=== PATIENT | male | born 1960 | race Caucasian/White ===

== ENCOUNTER 2017-02-26 04:14 | Emergency (ER) | payer OTHER ==
[~2017-02-26] VITALS: Ht 185.4 cm; Wt 124.7 kg
[~2017-02-26 04:14] MED LIST: ALLO100T PO; DIGO250T PO; DILT180C2 PO; FENO135C PO; LISI-338 PO; SOTA80TA48 PO; WARF5TAB7 PO
[2017-02-26] MEDS ORDERED: IV NORMAL SALINE 1000ML BAG 1,000 ML IV SCH (05:00)
[2017-02-26 05:06] LABS: BASO # 0.1 x10^3/uL (0.0-0.2); BASO % 1 % (0-3); EOS % 2 % (0-3); HEMATOCRIT 48.9 % (39.0-53.0); LYMPH # 1.8 x10^3/uL (1.0-4.8); LYMPH % 17 % (24-48); MEAN CORPUSCULAR HEMOGLOBIN 30 pg (25-35); MEAN CORPUSCULAR HGB CONC 35 g/dL (31-37); MEAN CORPUSCULAR VOLUME 87 fL (79-100); MONO % 10 % (0-9); NEUT % 70 % (31-73); PLATELET COUNT 191 x10^3/uL (140-400); RED BLOOD COUNT 5.65 x10^6/uL (4.30-5.70); RED CELL DISTRIBUTION WIDTH 14.6 % (11.5-14.5); WHITE BLOOD COUNT 10.3 x10^3/uL (4.0-11.0)
[2017-02-26 05:08] LABS: BILIRUBIN,URINE NEGATIVE (NEG); GLUCOSE,URINE NEGATIVE (NEG); NITRITE,URINE NEGATIVE (NEG); PH,URINE 5.5; PROTEIN,URINE 100 mg/dL (NEG-TRACE); UROBILINOGEN,URINE 0.2 mg/dL (0.2 mg/dL)
[2017-02-26] MEDS ORDERED: CONTRAST GIVEN MC PRN (05:15)
[2017-02-26] MEDS ORDERED: IOHEXOL 300 MG/ML 75 ML VIAL IV ONE (05:15)
[2017-02-26] MEDS ORDERED: KETOROLAC 30 MG/ML INJ. IV ONE (05:15)
[2017-02-26 05:18] LABS: CALCIUM 9.5 mg/dL (8.5-10.1); CREATININE 1.4 mg/dL (0.7-1.3); GFR 52.2; POTASSIUM 4.2 mmol/L (3.5-5.1)
[2017-02-26 05:24] LABS: ALBUMIN 3.8 g/dL (3.4-5.0); ALBUMIN/GLOBULIN RATIO 1.1 (1.0-1.7); TOTAL BILIRUBIN 0.5 mg/dL (0.2-1.0); TOTAL PROTEIN 7.4 g/dL (6.4-8.2)
[2017-02-26 05:27] LABS: BACTERIA,URINE 0 /HPF (0-FEW); RBC,URINE 0 /HPF (0-2); SQUAMOUS EPITHELIAL CELL,UR MOD /LPF; WBC,URINE 0 /HPF (0-4)
[2017-02-26] MEDS ORDERED: IOHEXOL 300 MG/ML 75 ML VIAL ONE (05:41)
--- NOTE | 2017-02-26 06:11 | RAD ---
CT abdomen and pelvis without with contrast 02/26/2017 CLINICAL INDICATION: Abdominal pain, back pain. Urinary urgency. COMPARISON: None. TECHNIQUE: Multiple CT images of the abdomen and pelvis were obtained without and following the uneventful intravenous administration of 60 mL Omnipaque 300. *One or more of the following individualized dose reduction techniques were utilized for this examination: 1. Automated exposure control. 2. Adjustment of the mA and/or kV according to patient size. 3. Use of iterative reconstruction technique. Abdomen and pelvis findings: There is mild generalized cardiomegaly. Liver, gallbladder, spleen, adrenal glands, pancreas are unremarkable. No intra or extra hepatic biliary ductal dilatation. There is a 4 mm obstructive calculus in the distal right ureter, approximately 1 cm proximal to the UVJ with mild upstream hydroureteronephrosis with periureteral and perinephric stranding. There is a 3 mm hypodensity in the interpolar right kidney which is too small to definitively characterize and The abdominal aorta is normal caliber with mild calcified atheromatous disease. No retroperitoneal mesenteric lymphadenopathy. Small and large bowel loops are normal in caliber without obstruction. Appendix is normal in appearance. Abdominal free fluid. No abdominal lymphadenopathy. Urinary bladder is decompressed. Prostate seminal vesicles are present. No pelvic lymphadenopathy or free fluid. There is 3 mm anterolisthesis of L4 on L5. No destructive osseous lesions. IMPRESSION: 1. 4 mm obstructive calculus in the distal right ureter, just proximal to the UVJ, with mild upstream hydroureteronephrosis. 2. Right periureteral and perinephric stranding may be reactive to the stone, however a ascending infection can't be excluded. Electronically signed by: Phil Sahu MD (02/26/2017 6:07 AM) [facility]
[2017-02-26] MEDS ORDERED: HYDR-971 PO (06:53)
--- NOTE | 2017-02-26 06:53 | PHYS DOC ---
Past Medical History Past Medical History: A-Fib, Hypertension Past Surgical History: No Surgical History Alcohol Use: None Drug Use: None Adult General Chief Complaint Chief Complaint: ABDOMINAL PAIN HPI HPI 57-year-old male with a prior history of diverticulitis no prior history of kidney stones now presents emergency department complaining of right flank pain sudden and severe just prior to arrival. Pain radiates to the abdomen but he does not have any actual abdominal tenderness or pain in no fevers chills sweats or shaking chills. Patient had no prodromal symptoms. He was feeling fine at his baseline last night. Normal bowel and bladder habits. Review of Systems Review of Systems Constitutional: Denies fever or chills [] Eyes: Denies change in visual acuity, redness, or eye pain [] HENT: Denies nasal congestion or sore throat [] Respiratory: Denies cough or shortness of breath [] Cardiovascular: No additional information not addressed in HPI [] GI: Denies abdominal pain, nausea, vomiting, bloody stools or diarrhea [] : Denies dysuria or hematuria [] Musculoskeletal: Denies back pain or joint pain [] Integument: Denies rash or skin lesions [] Neurologic: Denies headache, focal weakness or sensory changes [] Endocrine: Denies polyuria or polydipsia [] Current Medications Current Medications Current Medications Medications (Trade) Dose Ordered Sig/Katia Start Time Stop Time Status Last Admin Dose Admin Info (Do NOT chart on this entry -- for MONITORING) 1 each PRN DAILY PRN 02/26/17 05:15 02/28/17 05:14 Iohexol (Omnipaque 300 Mg/ml) 75 ml STK-MED ONCE 02/26/17 05:41 02/26/17 05:42 DC Ketorolac Tromethamine (Toradol) 30 mg 1X ONCE 02/26/17 05:15 02/26/17 05:22 DC 02/26/17 05:18 30 MG Sodium Chloride 1,000 ml @ 999 mls/hr Q1H1M 02/26/17 05:00 02/26/17 05:11 999 MLS/HR Tamsulosin HCl (Flomax) 0.4 mg 1X ONCE 02/26/17 07:15 02/26/17 07:16 UNV Allergies Allergies Allergies Coded Allergies Type Severity Reaction Last Updated Verified No Known Drug Allergies 07/03/14 No Physical Exam Physical Exam Anxious and restless appearing 57-year-old male in no acute distress mild right CVA tenderness nontender abdomen and pelvis clear lungs regular rate and rhythm no tachycardia benign extremities Constitutional: Well developed, well nourished, no acute distress, non-toxic appearance. [] HENT: Normocephalic, atraumatic, bilateral external ears normal, oropharynx moist, no oral exudates, nose normal. [] Eyes: PERRLA, EOMI, conjunctiva normal, no discharge. [] Neck: Normal range of motion, no tenderness, supple, no stridor. [] Cardiovascular:Heart rate regular rhythm, no murmur [] Lungs & Thorax: Bilateral breath sounds clear to auscultation [] Abdomen: Bowel sounds normal, soft, no tenderness, no masses, no pulsatile masses. [] Skin: Warm, dry, no erythema, no rash. [] Back: No tenderness, no CVA tenderness. [] Extremities: No tenderness, no cyanosis, no clubbing, ROM intact, no edema. [] Neurologic: Alert and oriented X 3, normal motor function, normal sensory function, no focal deficits noted. [] Psychologic: Affect normal, judgement normal, mood normal. [] Current Patient Data Vital Signs Vital Signs Date Time Temp Pulse Resp B/P (MAP) Pulse Ox O2 Delivery O2 Flow Rate FiO2 02/26/17 06:58 80 16 127/67 (87) 97 02/26/17 04:55 Room Air 02/26/17 04:24 97.8 97.8 Lab Values Laboratory Tests Test 02/26/17 04:43 White Blood Count 10.3 x10^3/uL (4.0-11.0) Red Blood Count 5.65 x10^6/uL (4.30-5.70) Hemoglobin 17.0 g/dL (13.0-17.5) Hematocrit 48.9 % (39.0-53.0) Mean Corpuscular Volume 87 fL (79-100) Mean Corpuscular Hemoglobin 30 pg (25-35) Mean Corpuscular Hemoglobin Concent 35 g/dL (31-37) Red Cell Distribution Width 14.6 % (11.5-14.5) H Platelet Count 191 x10^3/uL (140-400) Neutrophils (%) (Auto) 70 % (31-73) Lymphocytes (%) (Auto) 17 % (24-48) L Monocytes (%) (Auto) 10 % (0-9) H Eosinophils (%) (Auto) 2 % (0-3) Basophils (%) (Auto) 1 % (0-3) Neutrophils # (Auto) 7.2 x10^3uL (1.8-7.7) Lymphocytes # (Auto) 1.8 x10^3/uL (1.0-4.8) Monocytes # (Auto) 1.0 x10^3/uL (0.0-1.1) Eosinophils # (Auto) 0.2 x10^3/uL (0.0-0.7) Basophils # (Auto) 0.1 x10^3/uL (0.0-0.2) Urine Collection Type Unknown Urine Color Yellow Urine Clarity Cloudy Urine pH 5.5 Urine Specific [place] 1.025 Urine Protein 100 mg/dL (NEG-TRACE) Urine Glucose (UA) Negative mg/dL (NEG) Urine Ketones (Stick) Negative mg/dL (NEG) Urine Blood Trace (NEG) Urine Nitrite Negative (NEG) Urine Bilirubin Negative (NEG) Urine Urobilinogen Dipstick 0.2 mg/dL (0.2 mg/dL) Urine Leukocyte Esterase Negative (NEG) Urine RBC 0 /HPF (0-2) Urine WBC 0 /HPF (0-4) Urine Squamous Epithelial Cells Mod /LPF Urine Bacteria 0 /HPF (0-FEW) Urine Hyaline Casts Occasional /HPF Urine Mucus Mod /LPF Sodium Level 140 mmol/L (136-145) Potassium Level 4.2 mmol/L (3.5-5.1) Chloride Level 104 mmol/L (98-107) Carbon Dioxide Level 26 mmol/L (21-32) Anion Gap 10 (6-14) Blood Urea Nitrogen 26 mg/dL (8-26) Creatinine 1.4 mg/dL (0.7-1.3) H Estimated GFR (Cockcroft-Gault) 52.2 BUN/Creatinine Ratio 19 (6-20) Glucose Level 113 mg/dL (70-99) H Calcium Level 9.5 mg/dL (8.5-10.1) Total Bilirubin 0.5 mg/dL (0.2-1.0) Aspartate Amino Transferase (AST) 18 U/L (15-37) Alanine Aminotransferase (ALT) 28 U/L (16-63) Alkaline Phosphatase 45 U/L (46-116) L Troponin I Quantitative < 0.017 ng/mL (0.000-0.055) Total Protein 7.4 g/dL (6.4-8.2) Albumin 3.8 g/dL (3.4-5.0) Albumin/Globulin Ratio 1.1 (1.0-1.7) Lipase 307 U/L (73-393) Laboratory Tests 02/26/17 04:43 Laboratory Tests 02/26/17 04:43 EKG EKG [] Radiology/Procedures Radiology/Procedures [] Course & Med Decision Making Course & Med Decision Making Pertinent Labs and Imaging studies reviewed. (See chart for details) Signs and symptoms consistent with renal colic in a 57-year-old male with no prior history thereof. Labs and urinalysis unremarkable except trace blood on UA. CT shows 4 mm stone distal right ureter proximal UVJ. Patient stable and comfortable well-appearing on reevaluation prior to discharge. No infectious prodrome and urinalysis again was completely negative regarding infection. Patient were to take ibuprofen [place] as needed and Flomax as prescribed until passage of stone. He will follow-up with his doctor in 2 days for reevaluation and referral to urology if needed. [] Dragon Disclaimer Dragon Disclaimer This electronic medical record was generated, in whole or in part, using a voice recognition dictation system. Departure Departure Impression: Primary Impression: Ureterolithiasis Additional Impression: Ureteral colic Disposition: 01 HOME, SELF-CARE Condition: IMPROVED Referrals: SUSY WOMACK (PCP) Patient Instructions: Kidney Stones Additional Instructions: You have a 4 mm kidney stone in your right ureter. Typically a 4 mm stone will pass spontaneously. Drink plenty of fluids and take Flomax as prescribed. Flomax is a medicine that helps open the urinary tract and potentially pass a stone. Take ibuprofen 800 mg every 6 hours and use [place] as needed for breakthrough pain. Follow-up with your doctor for reevaluation in 1-2 days and referral to [facility] urology as needed. Reasons to return to the emergency department would include uncontrolled pain or worsening pain in the setting of fevers. Scripts Tamsulosin Hcl (FLOMAX) 0.4 Mg Cap.er.24h 0.4 MG PO DAILY for 10 Days, #10 TAB Prov: ROBERTH BRAMBILA MD 02/26/17 Hydrocodone/Apap 5-325 (NORCO 5-325 TABLET) 1 Each Tablet 1 TAB PO PRN Q6HRS Y for PAIN, #24 TAB 0 Refills Prov: ROBERTH BRAMBILA MD 02/26/17 Problem Qualifiers ROBERTH BRAMBILA MD Feb 26, 2017 06:53
[2017-02-26] MEDS ORDERED: TAMS0.4C97 PO (07:08)
[2017-02-26 07:11] VITALS: BP 134/62
[2017-02-26] MEDS ORDERED: TAMSULOSIN 0.4 MG CAP.ER.24H. PO ONE (07:30)
--- NOTE | 2017-02-26 11:46 | EKG ---
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
== END 2017-02-26 07:23 | disposition home or self-care (01) ==
LOC: ER 04:14
DX: N20.1 Calculus of ureter (principal); I48.91 Unspecified atrial fibrillation; I10 Essential (primary) hypertension
CPT/HCPCS: 36415; 74178; 80053; 81001; 83690; 84484; 85025; 93005; 96361; 96374; 99285; J1885; J7030; Q9967

== ENCOUNTER → 2020-03-21 | Outpatient (CLI) | payer OTHER ==
[~2020-03-21] MED LIST changes: -DIGO250T PO; +DIGO250T3 PO; +HYDR-3164 PO; +TAMS0.4C97 PO; +WARF-31 PO; -WARF5TAB7 PO
[2020-03-21 09:37] LABS: BASO # 0.1 x10^3/uL (0.0-0.2); BASO % 1 % (0-3); EOS # 0.2 x10^3/uL (0.0-0.7); EOS % 3 % (0-3); HEMATOCRIT 49.5 % (39.0-53.0); HEMOGLOBIN 17.1 g/dL (13.0-17.5); LYMPH # 1.6 x10^3/uL (1.0-4.8); LYMPH % 24 % (24-48); MEAN CORPUSCULAR HEMOGLOBIN 31 pg (25-35); MEAN CORPUSCULAR HGB CONC 35 g/dL (31-37); MEAN CORPUSCULAR VOLUME 89 fL (79-100); MONO # 0.8 x10^3/uL (0.0-1.1); MONO % 13 % (0-9); NEUT % 60 % (31-73); PLATELET COUNT 194 x10^3/uL (140-400); RED BLOOD COUNT 5.56 x10^6/uL (4.30-5.70); RED CELL DISTRIBUTION WIDTH 13.8 % (11.5-14.5); WHITE BLOOD COUNT 6.6 x10^3/uL (4.0-11.0)
[2020-03-21 10:00] LABS: CALCIUM 9.3 mg/dL (8.5-10.1); CREATININE 1.1 mg/dL (0.7-1.3); GFR 68.3; POTASSIUM 4.6 mmol/L (3.5-5.1)
[2020-03-21 10:03] LABS: URIC ACID 8.1 mg/dL (3.5-7.2)
== END ==
LOC: ONCLAB 09:03
PROVIDERS: ATTEND Internal Medicine Hematology & Oncology
DX: D45 Polycythemia vera (principal)
CPT/HCPCS: 36415; 80048; 81270; 82607; 82668; 82746; 84550; 85025

== ENCOUNTER → 2020-04-21 | Outpatient (CLI) | payer OTHER | LOC: ONCLAB 08:20 | PROVIDERS: ATTEND Internal Medicine Hematology & Oncology | DX: D45 Polycythemia vera (principal) | CPT/HCPCS: 36415; 82728; 83540; 83550 ==

== ENCOUNTER 2021-08-31 18:11 | Inpatient (IN) | payer OTHER ==
[~2021-08-31] VITALS: Ht 185.4 cm; Wt 125.3 kg
[~2021-08-31 18:11] MED LIST changes: -LISI-338 PO; +LISI5TAB15 PO
[2021-08-31] MEDS ORDERED: APIX5TAB PO (18:36)
[2021-08-31 19:00] VITALS: BP 86/54
[2021-08-31] MEDS: IV NORMAL SALINE 1000ML BAG 1,000 ML IV SCH (19:47)
[2021-08-31 20:33] LABS: BASO % 0 % (0-3); EOS # 0.1 x10^3/uL (0.0-0.7); EOS % 1 % (0-3); HEMATOCRIT 41.4 % (39.0-53.0); LYMPH # 0.3 x10^3/uL (1.0-4.8); LYMPH % 3 % (24-48); MEAN CORPUSCULAR HEMOGLOBIN 30 pg (25-35); MEAN CORPUSCULAR HGB CONC 34 g/dL (31-37); MEAN CORPUSCULAR VOLUME 89 fL (79-100); MONO # 0.4 x10^3/uL (0.0-1.1); MONO % 5 % (0-9); NEUT # 8.1 x10^3/uL (1.8-7.7); NEUT % 91 % (31-73); PLATELET COUNT 109 x10^3/uL (140-400); RED BLOOD COUNT 4.65 x10^6/uL (4.30-5.70); RED CELL DISTRIBUTION WIDTH 15.3 % (11.5-14.5); WHITE BLOOD COUNT 8.8 x10^3/uL (4.0-11.0)
[2021-08-31 20:41] LABS: CALCIUM 8.7 mg/dL (8.5-10.1); CREATININE 2.5 mg/dL (0.7-1.3); GFR 26.4; POTASSIUM 4.2 mmol/L (3.5-5.1)
[2021-08-31 20:48] LABS: ALBUMIN 2.4 g/dL (3.4-5.0); ALBUMIN/GLOBULIN RATIO 0.6 (1.0-1.7); TOTAL BILIRUBIN 2.5 mg/dL (0.2-1.0); TOTAL PROTEIN 6.6 g/dL (6.4-8.2)
[2021-08-31] MEDS ORDERED: CONTRAST GIVEN. MC PRN (21:00)
[2021-08-31] MEDS ORDERED: IOHEXOL 240 MG/ML 50ML VIAL. PO ONE (21:00)
[2021-08-31 21:19] LABS: RBC,URINE TNTC /HPF (0-2)
[2021-08-31 21:21] LABS: AMORPHOUS SEDIMENT,UR PRESENT /HPF; BACTERIA,URINE FEW /HPF (0-FEW); WBC,URINE 20-40 /HPF (0-4)
[2021-08-31 21:23] LABS: % EOS 2 % (0-5)
[2021-08-31 21:24] LABS: % BANDS 34 % (0-9); % LYMPHS 3 % (24-48); % MONOS 3 % (0-10); % SEGS 58 % (35-66); PLT ESTIMATE DECREASED (ADEQUATE); TOXIC GRANULATION PRESENT; TOXIC VACUOLATION PRESENT
[2021-08-31] MEDS: cefTRIAXone IV Push 1 GM VIAL. IVP SCH (22:01)
--- NOTE | 2021-08-31 22:36 | RAD ---
PQRS Compliance Statement: One or more of the following individualized dose reduction techniques were utilized for this examinat ion: 1. Automated exposure control 2. Adjustment of the mA and/or kV according to patient size 3. Use of iterative reconstruction technique CT abdomen/pelvis without contrast 08/31/2021 9:03 PM INDICATION: Abdominal pain, kidney stone. Pyelonephritis. COMPARISON: CT abdomen/pelvis 02/26/2017 TECHNIQUE: Multiple axial CT images of the abdomen and pelvis were obtained without intravenous contr ast. Coronal and sagittal reformats are provided. FINDINGS: Bibasilar subsegmental atelectasis versus scarring. Heart size is within normal limits. Evaluation of the solid abdominal viscera is limited by lack of intravenous contrast. No suspicious hepatic masses are identified. Spleen, bilateral adrenal glands, and pancreas are lisbet l in appearance. Gallbladder is present without adjacent inflammatory changes. The abdominal aorta is normal in course and caliber. There are no pathologically enlarged lymph nodes in the abdomen and pelvis. There is no abdominal free fluid. There is no free intraperitoneal air. Moderate diverticulosis. Oral contrast was administered. Opacified bowel loops demonstrate normal muc osal fold pattern. Small and large bowel are normal in caliber. There is no evidence for bowel obstru ction. There are no pericolonic inflammatory changes. A normal, nondilated appendix is visualized wit hout adjacent inflammatory changes. There is mild left hydroureteronephrosis with periureteral and perinephric fat stranding. No calculus is identified within the kidneys, ureters or urinary bladder. Minimal right perinephric edema. Urina ry bladder is within normal limits given degree of distention. Prostate seminal vesicles are normal. No suspicious osseous abnormality is identified. IMPRESSION: Mild left hydroureteronephrosis with periureteral and perinephric fat stranding. Correlate with urina lysis to assess for pyelitis or pyelonephritis. Obstructive etiology is not visualized and could refl ect recently passed calculus. Electronically signed by: Mercedes Yoon MD (08/31/2021 10:34 PM) [facility]
[2021-08-31 23:00] VITALS: BP 102/53
[2021-08-31] MEDS: SOTALOL 80 MG TABLET. PO SCH (23:35)
[2021-08-31] MEDS ORDERED: IV NORMAL SALINE 500ML BAG 500 ML IV ONE (23:45)
[2021-08-31] MEDS: HYDROcodone/APAP 10/325 1 TAB TABLET PO PRN (23:51)
--- NOTE | 2021-09-01 00:21 | RAD ---
EXAMINATION: XR CHEST 2V CLINICAL HISTORY: Chest pain. EXAM DATE/TIME: 08/31/2021 10:24 PM COMPARISON: None FINDINGS: Lines, Tubes, and Devices: None. Cardiomediastinal Silhouette: Within normal limits. Lungs and Pleura: No evidence of focal airspace consolidation or pleural effusion. Mild curvilinear s ubsegmental atelectasis and/or scarring in the left lower lung zone. Pulmonary vasculature unremarkab le. Bones and Soft Tissues: Degenerative changes in the thoracic spine. IMPRESSION: No evidence of acute cardiopulmonary abnormality. Electronically signed by: Carl Burch DO (09/01/2021 12:19 AM) [facility]
[2021-09-01 03:02] VITALS: BP 92/55
[2021-09-01] MEDS: HYDROcodone/APAP 10/325 1 TAB TABLET PO PRN (06:09)
[2021-09-01] MEDS: IV NORMAL SALINE 1000ML BAG 1,000 ML IV SCH ×2 (06:09→17:55)
[2021-09-01 07:00] VITALS: BP 86/55
[2021-09-01 08:40] LABS: CALCIUM 8.8 mg/dL (8.5-10.1); CREATININE 2.2 mg/dL (0.7-1.3); GFR 30.6
[2021-09-01] MEDS: SOTALOL 80 MG TABLET. PO SCH ×2 (09:00→20:55)
[2021-09-01] MEDS ORDERED: LISINOPRIL 5 MG TABLET. PO SCH (09:00)
[2021-09-01] MEDS: DIGOXIN 125 MCG TABLET. PO SCH (09:15)
--- NOTE | 2021-09-01 09:38 | PDOC ---
Provider Note Date of Service: DATE: 09/01/21 TIME: 09:37 Provider Note Pt seen .H&P dictated.#[id number]. Justifications for Admission Other Justification ADRIAN CARROLL MD Sep 01, 2021 09:38
--- NOTE | 2021-09-01 10:10 | HP ---
DATE OF SERVICE: 09/01/2021 ADMIT DATE: 08/31/2021 REASON FOR ADMISSION TO THE HOSPITAL: Left kidney pain, flank pain, has a history of kidney stones in the past and not any better, possible pyelonephritis over kidney stone. HISTORY OF PRESENT ILLNESS: The patient is a 61-year-old male, has a history of kidney stone 2 years ago. They had to do a cystoscopy, removal of the kidney stone 2-3 years ago. He was having pain in the left flank, dull, constant, did not get any better for last 2-3 days. He also has some fevers and chills. He was feeling miserable, seen in the office. He was tender in left upper quadrant and was admitted to the hospital. Urine shows lot of blood, leukocytes. The patient was admitted to the hospital, was started on IV antibiotics and CT scan was done, shows perinephric inflammation, possible pyelonephritis. Also, his kidneys went up to his normal kidneys well at 20 and 1.2. BUN, creatinine went up to 60 and 2.3. PAST MEDICAL HISTORY: Has a history of hypertension. He has atrial fibrillation, on Eliquis. PAST SURGICAL HISTORY: As mentioned, had a kidney stone removed 2-3 years ago. ALLERGIES: No known drug allergies. MEDICATIONS AT HOME: The patient is on Eliquis 5 mg twice a day for atrial fibrillation, digoxin 250 mg daily, lisinopril 5 mg daily, sotalol 160 mg twice a day. PERSONAL HISTORY: Denies smoking, alcohol, or drug abuse. FAMILY HISTORY: Unremarkable. REVIEW OF SYSTEMS: Complains of pain in the left upper quadrant going down to the groin, had felt weak and chills couple of days ago and also blood in the urine. PHYSICAL EXAMINATION: VITAL SIGNS: Afebrile, temperature 98, pulse 92, respirations 20, blood pressure 102/53, 93 on room air. HEENT: Head is atraumatic. Pupils equal. Oral cavity, no congestion. NECK: Supple. Thyroid not enlarged. JVD not elevated. CHEST: Symmetrical. CARDIOVASCULAR: S1, S2. LUNGS: Clear. ABDOMEN: Left upper quadrant tenderness to deep palpation. No rebound. Bowel sounds present. EXTERNAL GENITALIA: No Mckeon. RECTUM: Deferred. EXTREMITIES: No calf tenderness, no edema. NEUROLOGIC: No focal deficits noted. LABORATORY AND IMAGING DATA: White count 9, hemoglobin 14, platelets 109. Electrolytes shows sodium 133, potassium 4.2, chloride 96, bicarbonate 26, BUN 63, creatinine 2.5 and urine shows too many rbc's, 20-40 wbc's, large amount of blood, small leukocyte esterase, and chest x-ray negative. CT scan of the abdomen and pelvis shows mild left hydroureteronephrosis with perinephric fat stranding, possible pyelonephritis. FINAL IMPRESSION: 1. Pyelonephritis, kidney stone. 2. Acute kidney failure. 3. Atrial fibrillation. PLAN: At this time, the patient was admitted to the hospital, hydrated with IV fluids, so a CT scan shows pyelonephritis, no kidney stone, maybe kidney stone passed by, urine cultures, started on broad-spectrum antibiotics, monitor kidney function, Urology consult and see how he does. GARRET REESE: Hammad TID: [id number]
--- NOTE | 2021-09-01 10:23 | PDOC2 ---
UROLOGY CONSULT Date of Service DATE: 09/01/21 TIME: 10:02 Reason for Consult Reason for Consult: hydronephrosis Identification/Chief Complaint Chief Complaint left flank pain History of Present Illness Reason for Visit: 61yo male hospitalized for left flank pain and hematuria. About 3-4 days ago noticed feeling like UTI--dysuria, hematuria, hesitancy, weak stream. Later pt n oticed left flank and upper abdominal pain. He saw Dr. Diaz yesterday who admitted him for further workup. CT a/p showed mild left hydroureteronephrosis and fat stranding. UA showed trace bacteria, TNTC RBC, and 20-40 WBC. Normal serum WBC. Cr elevated above baseline. He was started on antibiotics and IV fluids. This morning pt notes that his pain is much improved, very mild now. His urinary symptoms have resolved as well--no dysuria or hesitancy anymore. Urine still looks "dark". Pt states he was dehydrated, didn't feel like drinking water prior to admission. Denies fevers throughout this. Pt notes history of kidney stone once a few years ago that required ureteroscopy for removal. He states the pain felt similar. He does have cardiac history and takes Eliquis which was held. At baseline, pt denies any urinary bother--no hesitancy, weak/intermittent stream, urgency, frequency, nocturia, incontinence. Past Medical History Cardiovascular: AFIB, HTN Renal/: Other (kidney stones) Past Surgical History Past Surgical History: Other (ureteroscopy, stone extraction) Family History Family History: Other (unremarkable) Current Medications Current Medications Current Medications Acetaminophen/ Hydrocodone Bitart (Lortab 10/325) 1 tab PRN Q6HRS PRN PO SEVERE PAIN 7-10 Last administered on 09/01/21at 06:09; Start 08/31/21 at 23:30; Stop 09/01/21 at 09:33; Status DC Ceftriaxone Sodium (Rocephin) 1 gm Q24H IVP Last administered on 08/31/21at 22:01; Start 08/31/21 at 20:00 Digoxin (Lanoxin) 250 mcg DAILY PO Last administered on 09/01/21at 09:15; Start 09/01/21 at 09:00 Info (CONTRAST GIVEN -- Rx MONITORING) 1 each PRN DAILY PRN MC SEE COMMENTS; Start 08/31/21 at 21:00; Stop 09/02/21 at 20:59 Iohexol (Omnipaque 240 Mg/ml) 50 ml 1X ONCE PO Last administered on 08/31/21at 21:04; Start 08/31/21 at 21:00; Stop 08/31/21 at 21:01; Status DC Lisinopril (Prinivil) 5 mg DAILY PO ; Start 09/01/21 at 09:00; Stop 09/01/21 at 09:33; Status DC Oxycodone/ Acetaminophen (Percocet 10/325) 1 tab PRN Q4HRS PRN PO PAIN; Start 09/01/21 at 09:45 Sodium Chloride 500 ml @ 500 mls/hr 1X ONCE IV Last administered on 08/31/21at 23:51; Start 08/31/21 at 23:45; Stop 09/01/21 at 00:44; Status DC Sodium Chloride 1,000 ml @ 100 mls/hr Q10H IV Last administered on 09/01/21at 06:09; Start 08/31/21 at 20:00 Sotalol HCl (Betapace) 160 mg BID PO ; Start 08/31/21 at 21:00 Allergies Allergies: Coded Allergies: No Known Drug Allergies (Unverified , 07/03/14) ROS Review Of Systems: CONSTITUTIONAL: No fever or chills EYES: No recent changes SKIN: No rash or itching CARDIOVASCULAR: No chest pain, syncope, palpitations, or edema RESPIRATORY: No SOB or cough GASTROINTESTINAL: No nausea, vomiting or abdominal pain NEUROLOGICAL: No headaches or weakness ENDOCRINE: No cold or heat intolerance GENITOURINARY: as in hpi MUSCULOSKELETAL: No back pain or joint pain LYMPHATICS: No enlarged lymph nodes PSYCHIATRIC: No anxiety or depression Physical Exam Physical Exam: General: Pleasant, no acute distress, well groomed Eyes: conjunctiva anicteric, eyes full range of motion ENT: moist oral mucosa, normal dentition Neck: Trachea midline, no masses Respiratory: unlabored breathing, not using accessory muscles, no crackles or wheezes Cardiovascular: Regular rate and rhythm, no peripheral edema Abdomen: nontender, nondistended, no hepatosplenomegaly, no masses Skin: no rashes or skin lesions on visualized skin Psych: normal mood, affect. Alert and oriented x 3. Vitals VITALS Vital Signs Date Time Temp Pulse Resp B/P (MAP) Pulse Ox O2 Delivery O2 Flow Rate FiO2 09/01/21 09:15 89 86/55 09/01/21 08:00 Room Air 09/01/21 07:15 20 94 09/01/21 07:00 98.8 98.8 Labs Labs Laboratory Tests Test 08/31/21 20:10 08/31/21 20:50 09/01/21 05:50 White Blood Count 8.8 x10^3/uL (4.0-11.0) Red Blood Count 4.65 x10^6/uL (4.30-5.70) Hemoglobin 14.0 g/dL (13.0-17.5) Hematocrit 41.4 % (39.0-53.0) Mean Corpuscular Volume 89 fL (79-100) Mean Corpuscular Hemoglobin 30 pg (25-35) Mean Corpuscular Hemoglobin Concent 34 g/dL (31-37) Red Cell Distribution Width 15.3 % (11.5-14.5) Platelet Count 109 x10^3/uL (140-400) Neutrophils (%) (Auto) 91 % (31-73) Lymphocytes (%) (Auto) 3 % (24-48) Monocytes (%) (Auto) 5 % (0-9) Eosinophils (%) (Auto) 1 % (0-3) Basophils (%) (Auto) 0 % (0-3) Neutrophils # (Auto) 8.1 x10^3/uL (1.8-7.7) Lymphocytes # (Auto) 0.3 x10^3/uL (1.0-4.8) Monocytes # (Auto) 0.4 x10^3/uL (0.0-1.1) Eosinophils # (Auto) 0.1 x10^3/uL (0.0-0.7) Basophils # (Auto) 0.0 x10^3/uL (0.0-0.2) Segmented Neutrophils % 58 % (35-66) Band Neutrophils % 34 % (0-9) Lymphocytes % 3 % (24-48) Monocytes % 3 % (0-10) Eosinophils % 2 % (0-5) Toxic Granulation Present Toxic Vacuolation Present Platelet Estimate Decreased (ADEQUATE) Sodium Level 133 mmol/L (136-145) 131 mmol/L (136-145) Potassium Level 4.2 mmol/L (3.5-5.1) 4.0 mmol/L (3.5-5.1) Chloride Level 96 mmol/L (98-107) 96 mmol/L (98-107) Carbon Dioxide Level 26 mmol/L (21-32) 25 mmol/L (21-32) Anion Gap 11 (6-14) 10 (6-14) Blood Urea Nitrogen 63 mg/dL (8-26) 60 mg/dL (8-26) Creatinine 2.5 mg/dL (0.7-1.3) 2.2 mg/dL (0.7-1.3) Estimated GFR (Cockcroft-Gault) 26.4 30.6 BUN/Creatinine Ratio 25 (6-20) Glucose Level 84 mg/dL (70-99) 72 mg/dL (70-99) Calcium Level 8.7 mg/dL (8.5-10.1) 8.8 mg/dL (8.5-10.1) Total Bilirubin 2.5 mg/dL (0.2-1.0) Aspartate Amino Transf (AST/SGOT) 22 U/L (15-37) Alanine Aminotransferase (ALT/SGPT) 27 U/L (16-63) Alkaline Phosphatase 54 U/L (46-116) Total Protein 6.6 g/dL (6.4-8.2) Albumin 2.4 g/dL (3.4-5.0) Albumin/Globulin Ratio 0.6 (1.0-1.7) Urine Collection Type Unknown Urine Color (Auto) Hall Urine Turbidity Turbid Urine pH (Auto) 5.5 (<5.0-8.0) Urine Specific [place] 1.024 (1.000-1.030) Urine Protein (Auto) 200 mg/dL (Negative) Urine Glucose (Auto)(UA) Negative mg/dL (Negative) Urine Ketones (Auto) Negative mg/dL (Negative) Urine Blood (Auto) Large (Negative) Urine Nitrite Negative (Negative) Urine Bilirubin (Auto) Small (Negative) Urine Urobilinogen (Auto) 6 mg/dL (Normal) Urine Leukocyte Esterase (Auto) Moderate (Negative) Urine RBC Tntc /HPF (0-2) Urine WBC 20-40 /HPF (0-4) Urine Squamous Epithelial Cells Occ /LPF Urine Renal Epithelial Cells Occ /LPF Urine Amorphous Sediment Present /HPF Urine Bacteria Few /HPF (0-FEW) Urine Mucus Mod /LPF Laboratory Tests Test 08/31/21 20:10 08/31/21 20:50 09/01/21 05:50 White Blood Count 8.8 x10^3/uL (4.0-11.0) Red Blood Count 4.65 x10^6/uL (4.30-5.70) Hemoglobin 14.0 g/dL (13.0-17.5) Hematocrit 41.4 % (39.0-53.0) Mean Corpuscular Volume 89 fL (79-100) Mean Corpuscular Hemoglobin 30 pg (25-35) Mean Corpuscular Hemoglobin Concent 34 g/dL (31-37) Red Cell Distribution Width 15.3 % (11.5-14.5) Platelet Count 109 x10^3/uL (140-400) Neutrophils (%) (Auto) 91 % (31-73) Lymphocytes (%) (Auto) 3 % (24-48) Monocytes (%) (Auto) 5 % (0-9) Eosinophils (%) (Auto) 1 % (0-3) Basophils (%) (Auto) 0 % (0-3) Neutrophils # (Auto) 8.1 x10^3/uL (1.8-7.7) Lymphocytes # (Auto) 0.3 x10^3/uL (1.0-4.8) Monocytes # (Auto) 0.4 x10^3/uL (0.0-1.1) Eosinophils # (Auto) 0.1 x10^3/uL (0.0-0.7) Basophils # (Auto) 0.0 x10^3/uL (0.0-0.2) Segmented Neutrophils % 58 % (35-66) Band Neutrophils % 34 % (0-9) Lymphocytes % 3 % (24-48) Monocytes % 3 % (0-10) Eosinophils % 2 % (0-5) Toxic Granulation Present Toxic Vacuolation Present Platelet Estimate Decreased (ADEQUATE) Sodium Level 133 mmol/L (136-145) 131 mmol/L (136-145) Potassium Level 4.2 mmol/L (3.5-5.1) 4.0 mmol/L (3.5-5.1) Chloride Level 96 mmol/L (98-107) 96 mmol/L (98-107) Carbon Dioxide Level 26 mmol/L (21-32) 25 mmol/L (21-32) Anion Gap 11 (6-14) 10 (6-14) Blood Urea Nitrogen 63 mg/dL (8-26) 60 mg/dL (8-26) Creatinine 2.5 mg/dL (0.7-1.3) 2.2 mg/dL (0.7-1.3) Estimated GFR (Cockcroft-Gault) 26.4 30.6 BUN/Creatinine Ratio 25 (6-20) Glucose Level 84 mg/dL (70-99) 72 mg/dL (70-99) Calcium Level 8.7 mg/dL (8.5-10.1) 8.8 mg/dL (8.5-10.1) Total Bilirubin 2.5 mg/dL (0.2-1.0) Aspartate Amino Transf (AST/SGOT) 22 U/L (15-37) Alanine Aminotransferase (ALT/SGPT) 27 U/L (16-63) Alkaline Phosphatase 54 U/L (46-116) Total Protein 6.6 g/dL (6.4-8.2) Albumin 2.4 g/dL (3.4-5.0) Albumin/Globulin Ratio 0.6 (1.0-1.7) Urine Collection Type Unknown Urine Color (Auto) Hall Urine Turbidity Turbid Urine pH (Auto) 5.5 (<5.0-8.0) Urine Specific [place]da 1.024 (1.000-1.030) Urine Protein (Auto) 200 mg/dL (Negative) Urine Glucose (Auto)(UA) Negative mg/dL (Negative) Urine Ketones (Auto) Negative mg/dL (Negative) Urine Blood (Auto) Large (Negative) Urine Nitrite Negative (Negative) Urine Bilirubin (Auto) Small (Negative) Urine Urobilinogen (Auto) 6 mg/dL (Normal) Urine Leukocyte Esterase (Auto) Moderate (Negative) Urine RBC Tntc /HPF (0-2) Urine WBC 20-40 /HPF (0-4) Urine Squamous Epithelial Cells Occ /LPF Urine Renal Epithelial Cells Occ /LPF Urine Amorphous Sediment Present /HPF Urine Bacteria Few /HPF (0-FEW) Urine Mucus Mod /LPF Images Images CT abdomen/pelvis without contrast 08/31/2021 9:03 PM INDICATION: Abdominal pain, kidney stone. Pyelonephritis. COMPARISON: CT abdomen/pelvis 02/26/2017 TECHNIQUE: Multiple axial CT images of the abdomen and pelvis were obtained without intravenous contrast. Coronal and sagittal reformats are provided. FINDINGS: Bibasilar subsegmental atelectasis versus scarring. Heart size is within normal limits. Evaluation of the solid abdominal viscera is limited by lack of intravenous contrast. No suspicious hepatic masses are identified. Spleen, bilateral adrenal glands, and pancreas are normal in appearance. Gallbladder is present without adjacent inflammatory changes. The abdominal aorta is normal in course and caliber. There are no pathologically enlarged lymph nodes in the abdomen and pelvis. There is no abdominal free fluid. There is no free intraperitoneal air. Moderate diverticulosis. Oral contrast was administered. Opacified bowel loops demonstrate normal mucosal fold pattern. Small and large bowel are normal in caliber. There is no evidence for bowel obstruction. There are no pericolonic inflammatory changes. A normal, nondilated appendix is visualized without adjacent inflammatory changes. There is mild left hydroureteronephrosis with periureteral and perinephric fat stranding. No calculus is identified within the kidneys, ureters or urinary bladder. Minimal right perinephric edema. Urinary bladder is within normal limits given degree of distention. Prostate seminal vesicles are normal. No suspicious osseous abnormality is identified. IMPRESSION: Mild left hydroureteronephrosis with periureteral and perinephric fat stranding. Correlate with urinalysis to assess for pyelitis or pyelonephritis. Obstructive etiology is not visualized and could reflect recently passed calculus. Electronically signed by: Mercedes Yoon MD (08/31/2021 10:34 PM) [facility] Assessment/Plan Assessment/Plan Mild left hydroureteronephrosis, gross hematuria Imaging reviewed--dilation of left ureter down to bladder. No stone or obvious obstruction noted. Left perinephric fat stranding. UA with few bacteria. No leukocytosis or fevers. Has been hypotensive. KATE--improving. Likely due to left pyelitis. Continue abx, IVF, f/u urine cultures. Blood cultures show +GNR. Check pvr to assess incomplete emptying as cause of possible UTI. Pt does have hx of stones, may have recently passed a stone which could cause same symptoms. Continue to strain urine. Malignancy could also cause hematuria & obstruction though this seems less likely at this point, especially due to positive blood cultures. Check urine cytology. Pt should f/u in clinic 2 weeks after d/c. If symptoms persist then would recommend cystoscopy and possibly further imaging at that time. Will follow. D/w RN and Dr. Tejeda. ADENIKE PLAZA Sep 01, 2021 10:23
[2021-09-01 11:00] VITALS: BP 109/63
[2021-09-01] MEDS: oxyCODONE/APAP 10/325 1 TAB TABLET PO PRN ×2 (13:22→21:02)
[2021-09-01 15:00] VITALS: BP 91/60
[2021-09-01 19:00] VITALS: BP 109/64
[2021-09-01] MEDS: cefTRIAXone IV Push 1 GM VIAL. IVP SCH (21:02)
[2021-09-01] MEDS: LACTOBACILLUS RHAMNOSUS GG 1 CAPSULE. PO SCH (21:02)
[2021-09-01 23:16] VITALS: BP 103/50
[2021-09-02] MEDS: IV NORMAL SALINE 1000ML BAG 1,000 ML IV SCH ×2 (02:57→11:43)
[2021-09-02 03:21] VITALS: BP 109/67
[2021-09-02] MEDS: oxyCODONE/APAP 10/325 1 TAB TABLET PO PRN ×3 (03:41→20:38)
[2021-09-02 06:18] LABS: BASO % 1 % (0-3); EOS # 0.1 x10^3/uL (0.0-0.7); EOS % 1 % (0-3); HEMATOCRIT 39.8 % (39.0-53.0); HEMOGLOBIN 13.2 g/dL (13.0-17.5); LYMPH # 0.5 x10^3/uL (1.0-4.8); LYMPH % 7 % (24-48); MEAN CORPUSCULAR HEMOGLOBIN 30 pg (25-35); MEAN CORPUSCULAR HGB CONC 33 g/dL (31-37); MEAN CORPUSCULAR VOLUME 90 fL (79-100); MONO # 0.9 x10^3/uL (0.0-1.1); MONO % 12 % (0-9); NEUT # 6.3 x10^3/uL (1.8-7.7); NEUT % 80 % (31-73); PLATELET COUNT 117 x10^3/uL (140-400); RED BLOOD COUNT 4.45 x10^6/uL (4.30-5.70); RED CELL DISTRIBUTION WIDTH 15.9 % (11.5-14.5); WHITE BLOOD COUNT 7.9 x10^3/uL (4.0-11.0)
[2021-09-02 06:41] LABS: CALCIUM 8.5 mg/dL (8.5-10.1); CREATININE 1.9 mg/dL (0.7-1.3); GFR 36.2; POTASSIUM 4.2 mmol/L (3.5-5.1)
[2021-09-02 07:00] VITALS: BP 116/66
[2021-09-02] MEDS: SOTALOL 80 MG TABLET. PO SCH ×3 (08:50→20:39)
[2021-09-02] MEDS: DIGOXIN 125 MCG TABLET. PO SCH (08:54)
[2021-09-02] MEDS: LACTOBACILLUS RHAMNOSUS GG 1 CAPSULE. PO SCH ×2 (08:55→20:38)
--- NOTE | 2021-09-02 09:38 | PDOC ---
PROGRESS NOTES Date of Service: DATE: 09/02/21 TIME: 09:36 Subjective Subjective still has pain in the back Objective Objective Vital Signs Date Time Temp Pulse Resp B/P (MAP) Pulse Ox O2 Delivery O2 Flow Rate FiO2 09/02/21 08:54 86 116/66 09/02/21 07:00 98.0 20 96 Room Air 98.0 Intake and Output 09/02/21 07:00 Intake Total 1850 ml Output Total 2405 ml Balance -555 ml Intake Oral 900 ml IV Total 950 ml Output Urine Total 2320 ml Post Void Residual 85 ml Bladder Scan Volume Amount # Voids 3 Physical Exam Abdomen: Soft Heart: Normal S1, Normal S2 HEENT: Atraumatic Lungs: Clear to auscultation Neck: No JVD Neuro: Normal speech Skin: No breakdown Assessment Assessment FINAL IMPRESSION: 1. Pyelonephritis, kidney stone. 2. Acute kidney failure. 3. Atrial fibrillation. 4. Bacteremia gram neg.2/4 bottles 5. Hematuria ,kidney stone PLAN: IV Rocephin. ID consult Urology consult appreciated. holding Eliquis to hematuria cr 1.9 trending down. At this time, the patient was admitted to the hospital, hydrated with IV fluids, so a CT scan shows pyelonephritis, no kidney stone, maybe kidney stone passed by, urine cultures, started on broad-spectrum antibiotics, monitor kidney function, Urology consult and see how he does. Comment Review of Relevant I have reviewed the following items tricia (where applicable) has been applied. Labs Laboratory Tests Test 09/02/21 06:00 White Blood Count 7.9 x10^3/uL (4.0-11.0) Red Blood Count 4.45 x10^6/uL (4.30-5.70) Hemoglobin 13.2 g/dL (13.0-17.5) Hematocrit 39.8 % (39.0-53.0) Mean Corpuscular Volume 90 fL (79-100) Mean Corpuscular Hemoglobin 30 pg (25-35) Mean Corpuscular Hemoglobin Concent 33 g/dL (31-37) Red Cell Distribution Width 15.9 % (11.5-14.5) Platelet Count 117 x10^3/uL (140-400) Neutrophils (%) (Auto) 80 % (31-73) Lymphocytes (%) (Auto) 7 % (24-48) Monocytes (%) (Auto) 12 % (0-9) Eosinophils (%) (Auto) 1 % (0-3) Basophils (%) (Auto) 1 % (0-3) Neutrophils # (Auto) 6.3 x10^3/uL (1.8-7.7) Lymphocytes # (Auto) 0.5 x10^3/uL (1.0-4.8) Monocytes # (Auto) 0.9 x10^3/uL (0.0-1.1) Eosinophils # (Auto) 0.1 x10^3/uL (0.0-0.7) Basophils # (Auto) 0.0 x10^3/uL (0.0-0.2) Sodium Level 133 mmol/L (136-145) Potassium Level 4.2 mmol/L (3.5-5.1) Chloride Level 100 mmol/L (98-107) Carbon Dioxide Level 24 mmol/L (21-32) Anion Gap 9 (6-14) Blood Urea Nitrogen 46 mg/dL (8-26) Creatinine 1.9 mg/dL (0.7-1.3) Estimated GFR (Cockcroft-Gault) 36.2 Glucose Level 96 mg/dL (70-99) Calcium Level 8.5 mg/dL (8.5-10.1) Microbiology 08/31/21 Urine Culture - Preliminary, Resulted Escherichia Coli 08/31/21 Blood Culture - Final, Complete Medications Current Medications Lactobacillus Rhamnosus (Culturelle) 1 cap BID PO Last administered on 09/02/21at 08:55; Start 09/01/21 at 21:00 Oxycodone/ Acetaminophen (Percocet 10/325) 1 tab PRN Q4HRS PRN PO PAIN Last administered on 09/02/21at 03:41; Start 09/01/21 at 09:45 Vitals/I & O Vital Sign - Last 24 Hours 09/01/21 09/01/21 09/01/21 09/01/21 11:00 13:22 13:52 15:00 Temp 98.4 98.4 98.4 98.4 Pulse 85 82 Resp 18 20 18 18 B/P (MAP) 109/63 (78) 91/60 (70) Pulse Ox 97 97 96 O2 Delivery Room Air Room Air Room Air Room Air 09/01/21 09/01/21 09/01/21 09/01/21 19:00 20:55 21:00 23:16 Temp 97.9 98.5 97.9 98.5 Pulse 95 95 107 Resp 18 18 B/P (MAP) 109/64 (79) 109/64 103/50 (67) Pulse Ox 96 95 O2 Delivery Room Air Room Air Room Air 09/02/21 09/02/21 09/02/21 03:21 07:00 08:54 Temp 98.1 98.0 98.1 98.0 Pulse 93 86 86 Resp 18 20 B/P (MAP) 109/67 (81) 116/66 (83) 116/66 Pulse Ox 95 96 O2 Delivery Room Air Room Air Intake and Output 09/01/21 09/01/21 09/02/21 15:00 23:00 07:00 Intake Total 540 ml 1190 ml 120 ml Output Total 1685 ml 470 ml 250 ml Balance -1145 ml 720 ml -130 ml Justifications for Admission Other Justification ADRIAN CARROLL MD Sep 02, 2021 09:38
[2021-09-02 11:00] VITALS: BP 128/76
--- NOTE | 2021-09-02 12:25 | PDOC ---
SUBJECTIVE Subjective Pt reports feeling improved today OBJECTIVE Vital Signs Vital Signs Date Time Temp Pulse Resp B/P (MAP) Pulse Ox O2 Delivery O2 Flow Rate FiO2 09/02/21 11:00 97.8 92 20 128/76 (93) 97 Room Air 97.8 09/02/21 10:29 83 126/83 09/02/21 08:54 86 116/66 09/02/21 08:00 Room Air 09/02/21 07:00 98.0 86 20 116/66 (83) 96 Room Air 98.0 09/02/21 03:21 98.1 93 18 109/67 (81) 95 Room Air 98.1 09/01/21 23:16 98.5 107 18 103/50 (67) 95 Room Air 98.5 09/01/21 21:00 Room Air 09/01/21 20:55 95 109/64 09/01/21 19:00 97.9 95 18 109/64 (79) 96 Room Air 97.9 09/01/21 15:00 98.4 82 18 91/60 (70) 96 Room Air 98.4 09/01/21 13:52 18 Room Air 09/01/21 13:22 20 97 Room Air I & O Intake and Output 09/02/21 07:00 Intake Total 1850 ml Output Total 2405 ml Balance -555 ml Intake Oral 900 ml IV Total 950 ml Output Urine Total 2320 ml Post Void Residual 85 ml Bladder Scan Volume Amount # Voids 3 PHYSICAL EXAM Physical Exam NAD unlabored breathing nontender abd ASSESSMENT/PLAN Assessment/Plan Mild left hydroureteronephrosis, gross hematuria Imaging reviewed--dilation of left ureter down to bladder. No stone or obvious obstruction noted. Left perinephric fat stranding. KATE--Cr trending down. Likely due to left pyelitis. Continue abx, IVF, f/u urine cultures. Blood cultures show +GNR. Check pvr to assess incomplete emptying as cause of possible UTI. Pt does have hx of stones, may have recently passed a stone which could cause same symptoms. Continue to strain urine. Malignancy could also cause hematuria & obstruction though this seems less likely at this point, especially due to positive blood cultures. Check urine cytology. ID consulted, appreciate recommendations. Pt should f/u in clinic 2 weeks after d/c. If symptoms persist then would recommend cystoscopy and possibly further imaging at that time. Please call with questions. COMMENT Lab Laboratory Tests Test 09/02/21 06:00 White Blood Count 7.9 x10^3/uL (4.0-11.0) Red Blood Count 4.45 x10^6/uL (4.30-5.70) Hemoglobin 13.2 g/dL (13.0-17.5) Hematocrit 39.8 % (39.0-53.0) Mean Corpuscular Volume 90 fL (79-100) Mean Corpuscular Hemoglobin 30 pg (25-35) Mean Corpuscular Hemoglobin Concent 33 g/dL (31-37) Red Cell Distribution Width 15.9 % (11.5-14.5) Platelet Count 117 x10^3/uL (140-400) Neutrophils (%) (Auto) 80 % (31-73) Lymphocytes (%) (Auto) 7 % (24-48) Monocytes (%) (Auto) 12 % (0-9) Eosinophils (%) (Auto) 1 % (0-3) Basophils (%) (Auto) 1 % (0-3) Neutrophils # (Auto) 6.3 x10^3/uL (1.8-7.7) Lymphocytes # (Auto) 0.5 x10^3/uL (1.0-4.8) Monocytes # (Auto) 0.9 x10^3/uL (0.0-1.1) Eosinophils # (Auto) 0.1 x10^3/uL (0.0-0.7) Basophils # (Auto) 0.0 x10^3/uL (0.0-0.2) Sodium Level 133 mmol/L (136-145) Potassium Level 4.2 mmol/L (3.5-5.1) Chloride Level 100 mmol/L (98-107) Carbon Dioxide Level 24 mmol/L (21-32) Anion Gap 9 (6-14) Blood Urea Nitrogen 46 mg/dL (8-26) Creatinine 1.9 mg/dL (0.7-1.3) Estimated GFR (Cockcroft-Gault) 36.2 Glucose Level 96 mg/dL (70-99) Calcium Level 8.5 mg/dL (8.5-10.1) Justifications for Admission Other Justification ADENIKE PLAZA Sep 02, 2021 12:25
--- NOTE | 2021-09-02 14:47 | NUR ---
SS following for discharge planning. SS reviewed pt chart and discussed with pt RN. Pt is from home and is currently on room air. Urology following. ID consulted. PT ordered. Pt on IV Rocephin and IV fluids. SS will continue to follow for discharge planning.
[2021-09-02 15:00] VITALS: BP 123/72
[2021-09-02 19:00] VITALS: BP 127/65
--- NOTE | 2021-09-02 19:21 | CONS ---
DATE OF CONSULTATION: 09/02/2021 REQUESTING PHYSICIAN: Raul Diaz MD REASON FOR CONSULTATION: E. coli bacteremia. HISTORY OF PRESENT ILLNESS: This is a 61-year-old gentleman who came in with in fact, ____ Tuesday started urinating blood and some back pain on the left side. The patient on Tuesday went to Dr. Diaz's office, was seen and was admitted directly. The patient was found to have UTI with bacteremia, E. coli in the urine, E. coli in the blood, pyelonephritis and left-sided hydroureter, hydronephrosis and periureteral and perinephric fat stranding. The patient does remark to having passed some gravel. The patient is feeling much better. When he came in, his blood pressure was low down in the 80s and now it has improved. He does have acute kidney injury, which is slowly improving. PAST MEDICAL HISTORY: Positive for actually history of kidney stones in the past. At that time, he has had lithotripsy done ____ and has had urinary infection then. The patient also has hypertension, hyperlipidemia, obesity, atrial fibrillation, chronic back problems, skin cancer. SOCIAL HISTORY: Negative for smoking, alcohol use or drug use. ALLERGIES: No known drug allergies. CURRENT MEDICATIONS: Reviewed. The patient is on Rocephin. REVIEW OF SYSTEMS: As in HPI. All other systems reviewed are negative. PHYSICAL EXAMINATION: GENERAL: Alert, oriented gentleman, not in any distress. VITAL SIGNS: Stable, afebrile. HEENT: NAD. NECK: Supple, no JVP, no lymphadenopathy. LUNGS: Clear. HEART: S1, S2, regular. ABDOMEN: Soft, nontender. No organomegaly. EXTREMITIES: No edema, cyanosis. SKIN: Unremarkable. NEUROLOGIC: The patient is alert, awake, and appropriate. No focal neurologic deficit. LABORATORY DATA: White count is normal, platelets are normal. BUN and creatinine is 46 and 1.9. Urinalysis showed 20-40 wbc's, too numerous to count rbc's. Urine culture is positive with E. coli. Blood culture is positive with E. coli, susceptibilities are pending. CT of the abdomen and pelvis reviewed. IMPRESSION: 1. Hematuria, most likely from a kidney stone. 2. Escherichia coli urinary tract infection with bacteremia and sepsis. 3. Acute kidney injury. 4. History of atrial fibrillation. 5. Hypertension. RECOMMENDATIONS: Continue Rocephin, supportive care as soon as susceptibilities are known, we will adjust. Also, RN to do postvoid residual. Thank you very much, Dr. Diaz, for giving me opportunity to participate in this patient's care. YIMI/[facility] [place] DR: YIMI/clif TID: [id number]
[2021-09-02] MEDS: cefTRIAXone IV Push 1 GM VIAL. IVP SCH (20:38)
[2021-09-02 23:53] VITALS: BP 110/67
[2021-09-03] MEDS: IV NORMAL SALINE 1000ML BAG 1,000 ML IV SCH ×3 (01:03→20:56)
[2021-09-03 03:51] VITALS: BP 108/63
[2021-09-03 07:00] VITALS: BP 166/68
[2021-09-03 08:34] LABS: CALCIUM 8.8 mg/dL (8.5-10.1); CREATININE 1.5 mg/dL (0.7-1.3); GFR 47.6; POTASSIUM 3.9 mmol/L (3.5-5.1)
--- NOTE | 2021-09-03 09:30 | PDOC ---
PROGRESS NOTES Date of Service: DATE: 09/03/21 TIME: 09:28 Subjective Subjective feels ok ,dark urine Objective Objective Vital Signs Date Time Temp Pulse Resp B/P (MAP) Pulse Ox O2 Delivery O2 Flow Rate FiO2 09/03/21 07:00 99.0 74 18 166/68 (100) 93 99.0 09/03/21 03:51 Room Air Intake and Output 09/03/21 07:00 Intake Total 240 ml Output Total 1050 ml Balance -810 ml Intake Oral 240 ml Output Urine Total 1050 ml Bladder Scan Volume Amount # Voids 1 # Bowel Movements 1 Physical Exam Abdomen: Soft Heart: Normal S1, Normal S2 HEENT: Atraumatic Lungs: Clear to auscultation Neck: No JVD Neuro: Normal speech Skin: No breakdown Assessment Assessment FINAL IMPRESSION: 1. Pyelonephritis, kidney stone. 2. Acute kidney failure. 3. Atrial fibrillation. 4. Bacteremia gram neg.2/4 bottles 5. Hematuria ,kidney stone PLAN:E coli bacteremia and E coli UTI IV Rocephin. ID consult appreciated Urology consult appreciated. holding Eliquis due to hematuria cr 1.[address] kidneys today. ? Home tomorrow. At this time, the patient was admitted to the hospital, hydrated with IV fluids, so a CT scan shows pyelonephritis, no kidney stone, maybe kidney stone passed by, urine cultures, started on broad-spectrum antibiotics, monitor kidney function, Urology consult and see how he does. Comment Review of Relevant I have reviewed the following items tricia (where applicable) has been applied. Labs Laboratory Tests Test 09/03/21 06:30 Sodium Level 132 mmol/L (136-145) Potassium Level 3.9 mmol/L (3.5-5.1) Chloride Level 101 mmol/L (98-107) Carbon Dioxide Level 23 mmol/L (21-32) Anion Gap 8 (6-14) Blood Urea Nitrogen 36 mg/dL (8-26) Creatinine 1.5 mg/dL (0.7-1.3) Estimated GFR (Cockcroft-Gault) 47.6 Glucose Level 79 mg/dL (70-99) Calcium Level 8.8 mg/dL (8.5-10.1) Microbiology 08/31/21 Urine Culture - Final, Complete Escherichia Coli 08/31/21 Blood Culture - Final, Complete Escherichia Coli Vitals/I & O Vital Sign - Last 24 Hours 09/02/21 09/02/21 09/02/21 09/02/21 10:29 11:00 15:00 19:00 Temp 97.8 98.4 99.9 97.8 98.4 99.9 Pulse 83 92 89 86 Resp 20 20 18 B/P (MAP) 126/83 128/76 (93) 123/72 (89) 127/65 (85) Pulse Ox 97 96 97 O2 Delivery Room Air Room Air Room Air 09/02/21 09/02/21 09/02/21 09/02/21 20:00 20:38 20:39 21:08 B/P (MAP) 127/65 O2 Delivery Room Air Room Air Room Air 09/02/21 09/03/21 09/03/21 23:53 03:51 07:00 Temp 98.0 98.2 99.0 98.0 98.2 99.0 Pulse 90 88 74 Resp 18 18 18 B/P (MAP) 110/67 (81) 108/63 (78) 166/68 (100) Pulse Ox 99 98 93 O2 Delivery Room Air Room Air Intake and Output 09/02/21 09/02/21 09/03/21 15:00 23:00 07:00 Intake Total 240 ml Output Total 400 ml 650 ml Balance 240 ml -400 ml -650 ml Justifications for Admission Other Justification ADRIAN CARROLL MD Sep 03, 2021 09:30
[2021-09-03] MEDS: SOTALOL 80 MG TABLET. PO SCH ×2 (09:52→20:45)
[2021-09-03] MEDS: LACTOBACILLUS RHAMNOSUS GG 1 CAPSULE. PO SCH ×2 (09:52→20:45)
[2021-09-03] MEDS: DIGOXIN 125 MCG TABLET. PO SCH (09:52)
[2021-09-03] MEDS: oxyCODONE/APAP 10/325 1 TAB TABLET PO PRN (10:39)
[2021-09-03 11:00] VITALS: BP 112/55
--- NOTE | 2021-09-03 13:54 | PDOC ---
Infectious Disease Note Subjective Subjective Patient is feeling much better ROS ROS No nausea vomiting diarrhea chest pain shortness of breath Vital Sign Vital Signs Vital Signs Date Time Temp Pulse Resp B/P (MAP) Pulse Ox O2 Delivery O2 Flow Rate FiO2 09/03/21 11:09 18 Room Air 09/03/21 11:00 98.7 81 112/55 (74) 99 98.7 Physical Exam PHYSICAL EXAM GENERAL: Alert, oriented gentleman, not in any distress. VITAL SIGNS: Stable, afebrile. HEENT: NAD. NECK: Supple, no JVP, no lymphadenopathy. LUNGS: Clear. HEART: S1, S2, regular. ABDOMEN: Soft, nontender. No organomegaly. EXTREMITIES: No edema, cyanosis. SKIN: Unremarkable. NEUROLOGIC: The patient is alert, awake, and appropriate. No focal neurologic deficit. Labs Lab Laboratory Tests Test 09/03/21 06:30 Sodium Level 132 mmol/L (136-145) Potassium Level 3.9 mmol/L (3.5-5.1) Chloride Level 101 mmol/L (98-107) Carbon Dioxide Level 23 mmol/L (21-32) Anion Gap 8 (6-14) Blood Urea Nitrogen 36 mg/dL (8-26) Creatinine 1.5 mg/dL (0.7-1.3) Estimated GFR (Cockcroft-Gault) 47.6 Glucose Level 79 mg/dL (70-99) Calcium Level 8.8 mg/dL (8.5-10.1) Micro Microbiology 08/31/21 Urine Culture - Final, Complete Escherichia Coli 08/31/21 Blood Culture - Final, Complete Escherichia Coli Objective Assessment IMPRESSION: 1. Hematuria, most likely from a kidney stone. 2. Escherichia coli urinary tract infection with bacteremia and sepsis. 3. Acute kidney injury. 4. History of atrial fibrillation. 5. Hypertension. Plan Plan of Care Continue antibiotics soon to be able to change to oral for possible discharge in a day or so MARICARMEN JOE MD Sep 03, 2021 13:54
[2021-09-03 15:00] VITALS: BP 116/86
--- NOTE | 2021-09-03 15:08 | PN ---
PROGRESS NOTES Date of Service DATE: 09/03/21 TIME: 15:06 Subjective Subjective Urine clearing pain better Objective Objective Vital Signs Date Time Temp Pulse Resp B/P (MAP) Pulse Ox O2 Delivery O2 Flow Rate FiO2 09/03/21 11:09 18 Room Air 09/03/21 11:00 98.7 81 112/55 (74) 99 98.7 Intake and Output 09/03/21 07:00 Intake Total 240 ml Output Total 1050 ml Balance -810 ml Intake Oral 240 ml Output Urine Total 1050 ml Bladder Scan Volume Amount # Voids 1 # Bowel Movements 1 Physical Exam Physical Exam NAD unlabored breathing abd NT Plan Plan of Care Urosepsis Improving--reviewed CT abdomen today. Report still pending. Ok with d/c per hospitalist and ID Pt will f/u in clinic in two weeks after d/c Please call with questions Comment Review of Relevant I have reviewed the following items tricia (where applicable) has been applied. Labs Laboratory Tests Test 09/02/21 06:00 09/03/21 06:30 White Blood Count 7.9 x10^3/uL (4.0-11.0) Red Blood Count 4.45 x10^6/uL (4.30-5.70) Hemoglobin 13.2 g/dL (13.0-17.5) Hematocrit 39.8 % (39.0-53.0) Mean Corpuscular Volume 90 fL (79-100) Mean Corpuscular Hemoglobin 30 pg (25-35) Mean Corpuscular Hemoglobin Concent 33 g/dL (31-37) Red Cell Distribution Width 15.9 % (11.5-14.5) Platelet Count 117 x10^3/uL (140-400) Neutrophils (%) (Auto) 80 % (31-73) Lymphocytes (%) (Auto) 7 % (24-48) Monocytes (%) (Auto) 12 % (0-9) Eosinophils (%) (Auto) 1 % (0-3) Basophils (%) (Auto) 1 % (0-3) Neutrophils # (Auto) 6.3 x10^3/uL (1.8-7.7) Lymphocytes # (Auto) 0.5 x10^3/uL (1.0-4.8) Monocytes # (Auto) 0.9 x10^3/uL (0.0-1.1) Eosinophils # (Auto) 0.1 x10^3/uL (0.0-0.7) Basophils # (Auto) 0.0 x10^3/uL (0.0-0.2) Sodium Level 133 mmol/L (136-145) 132 mmol/L (136-145) Potassium Level 4.2 mmol/L (3.5-5.1) 3.9 mmol/L (3.5-5.1) Chloride Level 100 mmol/L (98-107) 101 mmol/L (98-107) Carbon Dioxide Level 24 mmol/L (21-32) 23 mmol/L (21-32) Anion Gap 9 (6-14) 8 (6-14) Blood Urea Nitrogen 46 mg/dL (8-26) 36 mg/dL (8-26) Creatinine 1.9 mg/dL (0.7-1.3) 1.5 mg/dL (0.7-1.3) Estimated GFR (Cockcroft-Gault) 36.2 47.6 Glucose Level 96 mg/dL (70-99) 79 mg/dL (70-99) Calcium Level 8.5 mg/dL (8.5-10.1) 8.8 mg/dL (8.5-10.1) Laboratory Tests Test 09/03/21 06:30 Sodium Level 132 mmol/L (136-145) Potassium Level 3.9 mmol/L (3.5-5.1) Chloride Level 101 mmol/L (98-107) Carbon Dioxide Level 23 mmol/L (21-32) Anion Gap 8 (6-14) Blood Urea Nitrogen 36 mg/dL (8-26) Creatinine 1.5 mg/dL (0.7-1.3) Estimated GFR (Cockcroft-Gault) 47.6 Glucose Level 79 mg/dL (70-99) Calcium Level 8.8 mg/dL (8.5-10.1) Microbiology 08/31/21 Urine Culture - Final, Complete Escherichia Coli 08/31/21 Blood Culture - Final, Complete Escherichia Coli Medications Current Medications Sodium Chloride 1,000 ml @ 100 mls/hr Q10H IV Last administered on 09/03/21at 09:53; Start 08/31/21 at 20:00 Ceftriaxone Sodium (Rocephin) 1 gm Q24H IVP Last administered on 09/02/21at 20:38; Start 08/31/21 at 20:00 Lisinopril (Prinivil) 5 mg DAILY PO ; Start 09/01/21 at 09:00; Stop 09/01/21 at 09:33; Status DC Sotalol HCl (Betapace) 160 mg BID PO Last administered on 09/03/21 09:52; Start 08/31/21 at 21:00 Digoxin (Lanoxin) 250 mcg DAILY PO Last administered on 09/03/21at 09:52; Start 09/01/21 at 09:00 Iohexol (Omnipaque 240 Mg/ml) 50 ml 1X ONCE PO Last administered on 08/31/21at 21:04; Start 08/31/21 at 21:00; Stop 08/31/21 at 21:01; Status DC Info (CONTRAST GIVEN -- Rx MONITORING) 1 each PRN DAILY PRN MC SEE COMMENTS; Start 08/31/21 at 21:00; Stop 09/02/21 at 20:59; Status DC Sodium Chloride 500 ml @ 500 mls/hr 1X ONCE IV Last administered on 08/31/21at 23:51; Start 08/31/21 at 23:45; Stop 09/01/21 at 00:44; Status DC Acetaminophen/ Hydrocodone Bitart (Lortab 10/325) 1 tab PRN Q6HRS PRN PO SEVERE PAIN 7-10 Last administered on 09/01/21at 06:09; Start 08/31/21 at 23:30; Stop 09/01/21 at 09:33; Status DC Oxycodone/ Acetaminophen (Percocet 10/325) 1 tab PRN Q4HRS PRN PO PAIN Last administered on 09/03/21at 10:39; Start 09/01/21 at 09:45 Lactobacillus Rhamnosus (Culturelle) 1 cap BID PO Last administered on 09/03/21at 09:52; Start 09/01/21 at 21:00 Active Scripts Active Reported Eliquis (Apixaban) 5 Mg Tablet 5 Mg PO BID Sotalol (Sotalol Hcl) 80 Mg Tablet 160 Mg PO BID Digoxin 250 Mcg Tablet 250 Mcg PO DAILY Lisinopril 5 Mg Tablet 5 Mg PO DAILY Vitals/I & O Vital Sign - Last 24 Hours 09/02/21 09/02/21 09/02/21 09/02/21 19:00 20:00 20:38 20:39 Temp 99.9 99.9 Pulse 86 Resp 18 B/P (MAP) 127/65 (85) 127/65 Pulse Ox 97 O2 Delivery Room Air Room Air Room Air 09/02/21 09/02/21 09/03/21 09/03/21 21:08 23:53 03:51 07:00 Temp 98.0 98.2 99.0 98.0 98.2 99.0 Pulse 90 88 74 Resp 18 18 18 B/P (MAP) 110/67 (81) 108/63 (78) 166/68 (100) Pulse Ox 99 98 93 O2 Delivery Room Air Room Air Room Air 09/03/21 09/03/21 09/03/21 09/03/21 08:00 09:52 09:52 10:39 Pulse 74 74 Resp 19 B/P (MAP) 166/68 166/68 O2 Delivery Room Air Room Air 09/03/21 09/03/21 11:00 11:09 Temp 98.7 98.7 Pulse 81 Resp 18 18 B/P (MAP) 112/55 (74) Pulse Ox 99 O2 Delivery Room Air Intake and Output 09/02/21 09/02/21 09/03/21 15:00 23:00 07:00 Intake Total 240 ml Output Total 400 ml 650 ml Balance 240 ml -400 ml -650 ml ADENIKE PLAZA Sep 03, 2021 15:08
--- NOTE | 2021-09-03 16:23 | NUR ---
SS following up with discharge planning. SS reviewed pt chart and discussed with pt RN. Pt is currently on room air. Urology and ID following. Pt on IV Rocephin and IV fluids. SS will continue to follow for discharge planning.
--- NOTE | 2021-09-03 17:00 | RAD ---
EXAMINATION: CT abdomen without IV contrast. INDICATION:61 years, Male, follow-up pyelonephritis. TECHNIQUE: Axial CT images of the abdomen was obtained. Coronal and sagittal reformatted performed. COMPARISON: 08/31/2021. Exposure: One or more of the following individualized dose reduction techniques were utilized for thi s examination: 1. Automated exposure control 2. Adjustment of the mA and/or kV according to patient size 3. Use of iterative reconstruction technique. FINDINGS: LOWER CHEST: Trace bilateral pleural effusions with associated atelectatic changes, similar to prior exam. Trace a mount of pericardial effusion. ABDOMEN: Redemonstrated left nephromegaly with heterogeneous attenuation and large amount of perinephric and r etroperitoneal fat stranding. No loculated fluid collection to suggest abscess. No hydronephrosis or nephrolithiasis in either kidney. Similar nonspecific right perinephric fat stranding. Mild hepatomegaly measures up to 20.4 cm in length. Mild splenomegaly measures up to 14.7 cm in lengt h. Calcified granulomas in the spleen. Gallbladder and biliary ducts are unremarkable. Unremarkable p ancreas and adrenal glands. No bowel dilation. No lymphadenopathy. Normal caliber abdominal aorta. No ascites or pneumoperitoneum. MUSCULOSKELETAL STRUCTURES: Grade 1 anterolisthesis of L4 over L5. No acute osseous process or suspicious lesion. Multilevel dege nerative changes in the spine. IMPRESSION: 1. Similar findings of acute left pyelonephritis. No loculated fluid collection to suggest abscess. 2. No no hydronephrosis or nephrolithiasis in either kidney. 3. Mild hepatosplenomegaly. 4. Similar trace bilateral pleural effusions. Electronically signed by: Evangelina Ross MD (09/03/2021 4:57 PM) [id number]
[2021-09-03 19:00] VITALS: BP 113/62
[2021-09-03] MEDS: cefTRIAXone IV Push 1 GM VIAL. IVP SCH (20:44)
[2021-09-03] MEDS ORDERED: DOCUSATE SODIUM 100 MG CAPSULE. PO PRN (22:00)
[2021-09-03] MEDS: POLYETHYLENE GLYCOL 3350 17 GM PACKET. PO SCH (22:23)
[2021-09-03 23:01] VITALS: BP 130/78
[2021-09-04 03:01] VITALS: BP 157/74
[2021-09-04] MEDS: IV NORMAL SALINE 1000ML BAG 1,000 ML IV SCH (06:26)
[2021-09-04 07:00] VITALS: BP 110/74
[2021-09-04 07:39] LABS: BASO % 0 % (0-3); EOS # 0.1 x10^3/uL (0.0-0.7); EOS % 1 % (0-3); HEMATOCRIT 39.2 % (39.0-53.0); HEMOGLOBIN 13.1 g/dL (13.0-17.5); LYMPH % 9 % (24-48); MEAN CORPUSCULAR HEMOGLOBIN 29 pg (25-35); MEAN CORPUSCULAR HGB CONC 33 g/dL (31-37); MEAN CORPUSCULAR VOLUME 88 fL (79-100); MONO # 0.9 x10^3/uL (0.0-1.1); MONO % 9 % (0-9); NEUT # 8.5 x10^3/uL (1.8-7.7); NEUT % 80 % (31-73); PLATELET COUNT 153 x10^3/uL (140-400); RED BLOOD COUNT 4.45 x10^6/uL (4.30-5.70); RED CELL DISTRIBUTION WIDTH 16.2 % (11.5-14.5); WHITE BLOOD COUNT 10.5 x10^3/uL (4.0-11.0)
[2021-09-04 08:06] LABS: CALCIUM 8.5 mg/dL (8.5-10.1); CREATININE 1.3 mg/dL (0.7-1.3); GFR 56.1
[2021-09-04] MEDS: POLYETHYLENE GLYCOL 3350 17 GM PACKET. PO SCH (08:56)
[2021-09-04] MEDS: DIGOXIN 125 MCG TABLET. PO SCH ×2 (08:57→09:02)
[2021-09-04] MEDS: SOTALOL 80 MG TABLET. PO SCH ×2 (08:58→09:01)
[2021-09-04] MEDS: LACTOBACILLUS RHAMNOSUS GG 1 CAPSULE. PO SCH (08:58)
[2021-09-04 09:02] VITALS: BP 124/68
--- NOTE | 2021-09-04 09:07 | PDOC ---
PROGRESS NOTES Date of Service: DATE: 09/04/21 TIME: 09:05 Subjective Subjective feels better Objective Objective Vital Signs Date Time Temp Pulse Resp B/P (MAP) Pulse Ox O2 Delivery O2 Flow Rate FiO2 09/04/21 09:02 83 124/68 09/04/21 08:00 Room Air 09/04/21 07:00 98.5 18 95 98.5 Intake and Output 09/04/21 07:00 Intake Total 1000 ml Balance 1000 ml IV Total 1000 ml # Voids 8 Physical Exam Abdomen: Soft Heart: Normal S1, Normal S2 HEENT: Atraumatic Lungs: Clear to auscultation Neck: No JVD Neuro: Normal speech Skin: No breakdown Assessment Assessment FINAL IMPRESSION: 1. Pyelonephritis, kidney stone. 2. Acute kidney failure. 3. Atrial fibrillation. 4. Bacteremia gram neg.2/4 bottles 5. Hematuria ,kidney stone PLAN:E coli bacteremia and E coli UTI d/c Rocephin change to po [id number] mg po bidx10 more days ID consult appreciated Urology consult appreciated. resume Eliquis and lisinopril cr 1.[address] kidneys- no abscess d/c Home today Comment Review of Relevant I have reviewed the following items tricia (where applicable) has been applied. Labs Laboratory Tests Test 09/04/21 07:00 White Blood Count 10.5 x10^3/uL (4.0-11.0) Red Blood Count 4.45 x10^6/uL (4.30-5.70) Hemoglobin 13.1 g/dL (13.0-17.5) Hematocrit 39.2 % (39.0-53.0) Mean Corpuscular Volume 88 fL (79-100) Mean Corpuscular Hemoglobin 29 pg (25-35) Mean Corpuscular Hemoglobin Concent 33 g/dL (31-37) Red Cell Distribution Width 16.2 % (11.5-14.5) Platelet Count 153 x10^3/uL (140-400) Neutrophils (%) (Auto) 80 % (31-73) Lymphocytes (%) (Auto) 9 % (24-48) Monocytes (%) (Auto) 9 % (0-9) Eosinophils (%) (Auto) 1 % (0-3) Basophils (%) (Auto) 0 % (0-3) Neutrophils # (Auto) 8.5 x10^3/uL (1.8-7.7) Lymphocytes # (Auto) 1.0 x10^3/uL (1.0-4.8) Monocytes # (Auto) 0.9 x10^3/uL (0.0-1.1) Eosinophils # (Auto) 0.1 x10^3/uL (0.0-0.7) Basophils # (Auto) 0.0 x10^3/uL (0.0-0.2) Sodium Level 134 mmol/L (136-145) Potassium Level 4.0 mmol/L (3.5-5.1) Chloride Level 102 mmol/L (98-107) Carbon Dioxide Level 23 mmol/L (21-32) Anion Gap 9 (6-14) Blood Urea Nitrogen 29 mg/dL (8-26) Creatinine 1.3 mg/dL (0.7-1.3) Estimated GFR (Cockcroft-Gault) 56.1 Glucose Level 86 mg/dL (70-99) Calcium Level 8.5 mg/dL (8.5-10.1) Microbiology 08/31/21 Urine Culture - Final, Complete Escherichia Coli 08/31/21 Blood Culture - Final, Complete Escherichia Coli Medications Current Medications Docusate Sodium (Colace) 100 mg PRN DAILY PRN PO HARD STOOLS; Start 09/03/21 at 22:00 Polyethylene Glycol (miraLAX PACKET) 17 gm BID PO Last administered on 09/04/21at 08:56; Start 09/03/21 at 22:00 Vitals/I & O Vital Sign - Last 24 Hours 09/03/21 09/03/21 09/03/21 09/03/21 09:52 09:52 10:39 11:00 Temp 98.7 98.7 Pulse 74 74 81 Resp 19 18 B/P (MAP) 166/68 166/68 112/55 (74) Pulse Ox 99 O2 Delivery Room Air 09/03/21 09/03/21 09/03/21 09/03/21 11:09 15:00 19:00 20:00 Temp 97.6 98.4 97.6 98.4 Pulse 93 82 Resp 18 18 20 B/P (MAP) 116/86 (96) 113/62 (79) Pulse Ox 96 95 O2 Delivery Room Air Room Air Room Air 09/03/21 09/03/21 09/04/21 09/04/21 20:45 23:01 03:01 07:00 Temp 99.3 97.4 98.5 99.3 97.4 98.5 Pulse 75 85 77 Resp 20 20 18 B/P (MAP) 113/62 130/78 (95) 157/74 (101) 110/74 (86) Pulse Ox 95 96 95 O2 Delivery Room Air Room Air Room Air 09/04/21 09/04/21 09/04/21 08:00 09:01 09:02 Pulse 87 83 B/P (MAP) 124/68 124/68 O2 Delivery Room Air Intake and Output 0 09/03/21 09/03/21 09/04/21 15:00 23:00 07:00 Intake Total 1000 ml Balance 1000 ml Justifications for Admission Other Justification ADRIAN CARROLL MD Sep 04, 2021 09:07
[2021-09-04] MEDS ORDERED: CEFD300C PO (09:12)
--- NOTE | 2021-09-04 10:15 | NUR ---
SS following up with discharge planning. SS reviewed pt chart and discussed with pt RN. Pt is currently on room air. COVID19 negative. PT recommended home independent. Discharge order on the chart for home with self care.
--- NOTE | 2021-09-04 11:08 | NUR ---
Discharge Note: CIARA SONI Discharge instructions and discharge home medications reviewed with Patient and a copy given. All questions have been answered and understanding verbalized. The following instructions and handouts were given: follow up informaion, worsening symptoms, medication reconciliation, and pyelonephritis education. Discontinued lines and drains: IV discontinued from Left AC, traffic monitor specialist discontinued, and skin intact. Patient discharged to home with self-care via private transportaion.
--- NOTE | 2021-09-04 21:24 | PDOC ---
Provider Note Date of Service: DATE: 09/04/21 TIME: 21:23 Provider Note Discharge summary dictated.#[id number]. Justifications for Admission Other Justification ADRIAN CARROLL MD Sep 04, 2021 21:23
--- NOTE | 2021-09-05 04:35 | DS ---
DATE OF DISCHARGE: 09/04/2021 REASON FOR ADMISSION TO THE HOSPITAL: Pyelonephritis. CONSULTATIONS: Dr. Tejeda, Urology; Dr. Li, Infectious Disease. PROCEDURES DONE: CT of the abdomen and pelvis x 2. HOSPITAL COURSE: The patient is a 61-year-old male. The patient has a history of previous kidney stones in the past. He had noticed some fever, chills and left flank pain and the patient was seen in the office, was admitted for possible pyelonephritis. The patient had a urine positive for leukocytes and lot of blood in the urine. CT scan shows pyelonephritis and some hydroureter without any obstruction. The patient was seen by Urology, who thought he might have passed the stone, causing some hydronephrosis. Also, there was some infection that caused pyelonephritis. The patient was treated with IV Rocephin, seen by Infectious Disease. A repeat CT scan done , there is no abscess .The patient is feeling better. White count is down and it was recommended to finish 10 more days of oral antibiotic. The patient recommended to resume Eliquis and home medications. He was given cefdinir 300 mg twice daily for 10 days. See in the office and Urology followup in 2 weeks. The patient's laboratory data, BUN was 63, creatinine 2.5. With fluids, BUN came down to 29, creatinine 1.3. Urine shows E. coli in the urine and blood cultures positive 2/4 for E. coli. FINAL DIAGNOSES: 1. Pyelonephritis. 2. Escherichia coli bacteremia with positive blood cultures. 3. History of kidney stones. 4. Acute kidney failure. 5. Chronic atrial fibrillation. 6. Hypertension. DISPOSITION: Home. See [facility] for discharge medications. LEANNA/FESTUS/KACEY DR: LEANNA/clif TID: [id number] CLOV[place]
== END 2021-09-04 11:00 | disposition home or self-care (01) | DRG 871 ==
LOC: 5 NORTH 18:11
PROVIDERS: ADMIT Internal Medicine; ATTEND Internal Medicine
DX: A41.51 Sepsis due to Escherichia coli [E. coli] (principal); N17.0 Acute kidney failure with tubular necrosis; E43 Unspecified severe protein-calorie malnutrition; N10 Acute pyelonephritis; I48.20 Chronic atrial fibrillation, unspecified; N13.6 Pyonephrosis; R31.0 Gross hematuria; E78.5 Hyperlipidemia, unspecified; E86.0 Dehydration; I10 Essential (primary) hypertension; Z79.01 Long term (current) use of anticoagulants; Z85.828 Personal history of other malignant neoplasm of skin; Z87.442 Personal history of urinary calculi; E66.9 Obesity, unspecified; Z68.36 Body mass index [BMI] 36.0-36.9, adult
CPT/HCPCS: 36415; 71046; 74150; 74176; 80048; 80053; 81001; 85007; 85025; 87040; 87077; 87086; 87186; 88112; J0696; J7030; J7040; Q9966; G0378